=== PATIENT | male | born 1975 | race Caucasian/White ===

== ENCOUNTER 2020-11-05 14:05 | Emergency (ER) | payer OTHER, SELFPAY ==
--- NOTE | 2020-11-05 14:07 | ECG_ITS ---
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 Measurements Intervals [place] Rate: 73 P: 45 LA: 137 QRS: 42 QRSD: 93 T: 50 QT: 367 QTc: 406 Interpretive Statements SINUS RHYTHM EARLY REPOLARIZATION [ST ELEVATION WITH NORMALLY INFLECTED T-WAVE] No previous ECG available for comparison Electronically Signed On 11-05-2020 17:01:57 CDT by Laquita Garcia M.D. [id number] f
--- NOTE | 2020-11-05 14:07 | XR_ITS ---
WS: [id number] Portable AP upright chest, 11/05/2020 Clinical Data: chest pain Comparison: None. Findings: No nodules, masses or effusions are seen. The heart is normal. The pulmonary vascularity is not increased. No pneumonia or pneumothorax is seen. XR/XR chest 1V portable [id number] Impression: Negative chest.
[2020-11-05 15:45] VITALS: BP 127/85; PULSE 73; RESP 16; TEMP 36.7; O2SAT 97; BMI 27.9
--- NOTE | 2020-11-05 16:07 | ECG_ITS ---
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 Measurements Intervals [place] Rate: 75 P: 112 AL: 146 QRS: 43 QRSD: 96 T: 84 QT: 376 QTc: 421 Interpretive Statements SINUS RHYTHM MINIMAL ST DEPRESSION [0.025+ mV ST DEPRESSION] Compared to ECG 11/05/2020 15:12:51 ST (T wave) deviation now present Early repolarization no longer present Electronically Signed On 11-06-2020 9:28:00 CDT by Laquita Garcia M.D. [id number] f
--- NOTE | 2020-11-05 17:28 | ED_ITS ---
Documented by User: Arian Flores DO 11/06/20 12:41 HPI - Chest Pain General: Chief Complaint: Chest Pain Stated Complaint: Chest Pain, Light Headed, Tingling in fingers Time Seen by Provider: 11/05/20 17:26 History of Present Illness: HPI narrative: 44-year-old male presents with complaints of chest pain lightheadedness. He has no known coronary artery disease no previous evaluation. He has not noticed anything that alleviates or exacerbates it. He does notice he can get very temporary relief with change in position but it only last a few seconds then will begin to recur again. Has not previously been known to have heart disease nor is he had any evaluation he is not diabetic nor does he have a history of hypertension. Been going on for several hours today. MD complaint: chest pain and chest heaviness Onset (ago): hour(s) Timing of current episode: episodic Prior episodes: No Onset: during rest Pain location: substernal and right chest Pain radiation: right shoulder Severity: moderate Quality: aching and heaviness Relieving factors: nothing Exacerbating factors: nothing Associated symptoms: Deny abdominal pain, diaphoresis, dyspnea, fever(s), leg edema, nausea, palpitations, sense of impending doom, syncope or vomiting Treatment prior to arrival: none Review of Systems Const: Denies: fever(s) or diaphoresis ENMT: Denies: throat pain, ear or mastoid pain, nasal discharge or nasal congestion Card: Denies: palpitations or syncope Resp: Denies: dyspnea GI: Denies: abdominal pain, nausea or vomiting : Denies: flank pain, dysuria, urinary frequency or urinary urgency Skin/Breast: Denies: rash or pruritus PFSH ED PFSH: Social History Smoking and tobacco status: former smoker Alcohol intake: never Physical Exam Const: COMMON NORMALS: no acute distress GENERAL APPEARANCE: cooperative and comfortable ORIENTATION/CONSCIOUSNESS: Yes awake, Yes oriented to person, Yes oriented to place and Yes oriented to time HENMT: COMMON NORMALS: normocephalic and atraumatic HEAD & SCALP: normocephalic and atraumatic Neck/C-Spine: COMMON NORMALS: no JVD Resp: COMMON NORMALS: normal respiratory effort, No retractions, No use of accessory muscles and clear to auscultation bilaterally AUSCULTATION: clear to auscultation bilaterally Cardio: COMMON NORMALS: no JVD, regular rate, regular rhythm and No murmurs present (Cardio) RATE: regular rate RHYTHM: regular rhythm GI: COMMON NORMALS: Soft to palpation and No hepatosplenomegaly present AUSCULTATION: Yes normoactive bowel sounds PALPATION: Yes Soft to palpation, No Tenderness to palpation present (GI), No Guarding due to palpation present (GI) and Yes No hepatosplenomegaly present Extremity: COMMON NORMALS: normal to inspection, capillary refill normal, no clubbing, cyanosis or edema, no calf tenderness and no pedal edema Neuro: SENSORIUM/ORIENTATION: Yes oriented to person, Yes oriented to place and Yes oriented to time Skin: COMMON NORMALS: no rashes or lesions noted GENERAL SKIN EXAM: no rashes or lesions noted Course Vital Signs: Vital signs: Vital Signs Temperature 98.1 F 11/05/20 15:45 Pulse Rate 74 11/05/20 23:18 Respiratory Rate 19 H 11/05/20 23:18 Blood Pressure 126/82 11/05/20 23:18 Pulse Oximetry 98 11/05/20 23:18 MDM - Chest Pain MDM Narrative: Medical decision making narrative: Care turned to Dr. Lacey at change shift see his notes for final diagnosis and disposition Lab Data: Labs: Lab Results 11/05/20 11/05/20 11/05/20 Range/Units 17:56 17:56 17:56 WBC 9.9 (4.0-10.0) 10^3/ uL RBC 5.34 H (4.1-5.3) 10^6/u L Hgb 15.4 (11.7-16.6) g/dL Hct 47.2 (42.0-52.0) % MCV 88.4 (80-94) fl MCH 28.8 (28.0-34.0) pg MCHC 32.6 (30.0-36.0) g/dL RDW 13.2 (12.1-15.1) % Plt Count 244 (130-400) 10^3/c mm MPV 10.2 (7.4-10.4) fL Neut % (Auto) 76.9 % Lymph % (Auto) 13.7 % Lawrence % (Auto) 7.5 % Eos % (Auto) 1.1 % Baso % (Auto) 0.4 % Neut # (Auto) 7.58 (1.8-7.7) 10^3/u L Lymph # (Auto) 1.4 (0.8-4.8) 10^3/u L Lawrence # (Auto) 0.7 (0.2-0.9) 10^3/u L Eos # (Auto) 0.1 (0.0-0.8) 10^3/u L Baso # (Auto) 0.0 (0.0-0.1) 10^3/u L Nucleated RBC % (a uto) 0 % Nucleated RBCs # 0.0 /100WBC D-Dimer (0-0.59) ug/mIFE U Sodium 138 (136-145) mmol/L Potassium 4.4 (3.5-5.1) mmol/L Chloride 100 (98-107) mmol/L Carbon Dioxide 27 (22-29) mmol/L Anion Gap 15.4 (5-19) BUN 18 (6-20) mg/dL Creatinine 0.9 (0.7-1.2) mg/dL GFR Calculation 91.3 (90-130) mL/min Glucose 86 (65-115) mg/dL Calculated Osmolal ity 287 (285-295) mOsm/k g Calcium 8.9 (8.5-10.5) mg/dL Total Bilirubin 0.2 (0.15-1.2) mg/dL AST 16 (0-40) U/L ALT 18 (0-41) U/L Alkaline Phosphata se 81 (40-130) IU/L Troponin T Baselin e 8 (0-15) ng/L Troponin T 120 Min [place] (0-15) ng/L Delta Troponin T (0-10) ABS# Total Protein 6.9 (6.6-8.7) g/dL Albumin 4.6 (3.5-5.2) g/dL Globulin 2.3 (1.3-4.6) g/dL 11/05/20 11/05/20 Range/Units 19:56 20:29 WBC (4.0-10.0) 10^3/ uL RBC (4.1-5.3) 10^6/u L Hgb (11.7-16.6) g/dL Hct (42.0-52.0) % MCV (80-94) fl MCH (28.0-34.0) pg MCHC (30.0-36.0) g/dL RDW (12.1-15.1) % Plt Count (130-400) 10^3/c mm MPV (7.4-10.4) fL Neut % (Auto) % Lymph % (Auto) % Lawrence % (Auto) % Eos % (Auto) % Baso % (Auto) % Neut # (Auto) (1.8-7.7) 10^3/u L Lymph # (Auto) (0.8-4.8) 10^3/u L Lawrence # (Auto) (0.2-0.9) 10^3/u L Eos # (Auto) (0.0-0.8) 10^3/u L Baso # (Auto) (0.0-0.1) 10^3/u L Nucleated RBC % (a uto) % Nucleated RBCs # /100WBC D-Dimer 8.48 H (0-0.59) ug/mIFE U Sodium (136-145) mmol/L Potassium (3.5-5.1) mmol/L Chloride (98-107) mmol/L Carbon Dioxide (22-29) mmol/L Anion Gap (5-19) BUN (6-20) mg/dL Creatinine (0.7-1.2) mg/dL GFR Calculation (90-130) mL/min Glucose (65-115) mg/dL Calculated Osmolal ity (285-295) mOsm/k g Calcium (8.5-10.5) mg/dL Total Bilirubin (0.15-1.2) mg/dL AST (0-40) U/L ALT (0-41) U/L Alkaline Phosphata se (40-130) IU/L Troponin T Baselin e (0-15) ng/L Troponin T 120 Min [place] 7.68 (0-15) ng/L Delta Troponin T -0.32 L (0-10) ABS# Total Protein (6.6-8.7) g/dL Albumin (3.5-5.2) g/dL Globulin (1.3-4.6) g/dL Discharge Plan Discharge Patient Disposition: Home Clinical Impression: Chest pain Qualifiers: Chest pain type: unspecified Qualified Code(s): R07.9 - Chest pain, unspecified Condition: Stable Prescriptions: New Naprosyn 500 mg tablet 500 mg PO BID PRN (Reason: pain) Qty: 20 RF: 0 No Action sertraline [Zoloft] 100 mg tablet 100 mg PO DAILY RF: 0 meloxicam 15 mg tablet 15 mg PO DAILY RF: 0 Extra Strength Pain Reliever Tablet 1 tab PO Q6H PRN (Reason: Pain) RF: 0 Centrum Men 8 mg iron- 200 mcg-600 mcg Tablet 1 tab PO DAILY RF: 0 Discharge Orders: Discharge ED (Routine); Ordered 11/05/20 Ordered By: Jaiden Lacey Referrals: Nghia Phillips DO [Primary Care Provider] - 1-3 days Discharge Diet: Advance as tolerated Discharge Activity: Resume usual activity Patient Instructions: Chest Pain (ED) Coding Level of Care Code ED Director Business for Chg Fwd Exam Comprehensive Documented by User: Jaiden Lacey MD 11/05/20 23:02 HPI - Chest Pain General: Chief Complaint: Chest Pain Stated Complaint: Chest Pain, Light Headed, Tingling in fingers Time Seen by Provider: 11/05/20 17:26 [facility] ED PFSH: Social History Smoking and tobacco status: former smoker Alcohol intake: never Course Vital Signs: Vital signs: Vital Signs Temperature 98.1 F 11/05/20 15:45 Pulse Rate 74 11/05/20 23:18 Respiratory Rate 19 H 11/05/20 23:18 Blood Pressure 126/82 11/05/20 23:18 Pulse Oximetry 98 11/05/20 23:18 MDM - Chest Pain MDM Narrative: Medical decision making narrative: Patient presents here with chest pains atypical in nature. His troponins and CT of his chest here are both negative. He is stable for discharge is to follow-up his PCP informed he likely needs to get a stress test outpatient. He is return if worsening. He understands agrees to plan. Lab Data: Labs: Lab Results 11/05/20 11/05/20 11/05/20 Range/Units 17:56 17:56 17:56 WBC 9.9 (4.0-10.0) 10^3/ uL RBC 5.34 H (4.1-5.3) 10^6/u L Hgb 15.4 (11.7-16.6) g/dL Hct 47.2 (42.0-52.0) % MCV 88.4 (80-94) fl MCH 28.8 (28.0-34.0) pg MCHC 32.6 (30.0-36.0) g/dL RDW 13.2 (12.1-15.1) % Plt Count 244 (130-400) 10^3/c mm MPV 10.2 (7.4-10.4) fL Neut % (Auto) 76.9 % Lymph % (Auto) 13.7 % Lawrence % (Auto) 7.5 % Eos % (Auto) 1.1 % Baso % (Auto) 0.4 % Neut # (Auto) 7.58 (1.8-7.7) 10^3/u L Lymph # (Auto) 1.4 (0.8-4.8) 10^3/u L Lawrence # (Auto) 0.7 (0.2-0.9) 10^3/u L Eos # (Auto) 0.1 (0.0-0.8) 10^3/u L Baso # (Auto) 0.0 (0.0-0.1) 10^3/u L Nucleated RBC % (a uto) 0 % Nucleated RBCs # 0.0 /100WBC D-Dimer (0-0.59) ug/mIFE U Sodium 138 (136-145) mmol/L Potassium 4.4 (3.5-5.1) mmol/L Chloride 100 (98-107) mmol/L Carbon Dioxide 27 (22-29) mmol/L Anion Gap 15.4 (5-19) BUN 18 (6-20) mg/dL Creatinine 0.9 (0.7-1.2) mg/dL GFR Calculation 91.3 (90-130) mL/min Glucose 86 (65-115) mg/dL Calculated Osmolal ity 287 (285-295) mOsm/k g Calcium 8.9 (8.5-10.5) mg/dL Total Bilirubin 0.2 (0.15-1.2) mg/dL AST 16 (0-40) U/L ALT 18 (0-41) U/L Alkaline Phosphata se 81 (40-130) IU/L Troponin T Baselin e 8 (0-15) ng/L Troponin T 120 Min [place] (0-15) ng/L Delta Troponin T (0-10) ABS# Total Protein 6.9 (6.6-8.7) g/dL Albumin 4.6 (3.5-5.2) g/dL Globulin 2.3 (1.3-4.6) g/dL 11/05/20 11/05/20 Range/Units 19:56 20:29 WBC (4.0-10.0) 10^3/ uL RBC (4.1-5.3) 10^6/u L Hgb (11.7-16.6) g/dL Hct (42.0-52.0) % MCV (80-94) fl MCH (28.0-34.0) pg MCHC (30.0-36.0) g/dL RDW (12.1-15.1) % Plt Count (130-400) 10^3/c mm MPV (7.4-10.4) fL Neut % (Auto) % Lymph % (Auto) % Lawrence % (Auto) % Eos % (Auto) % Baso % (Auto) % Neut # (Auto) (1.8-7.7) 10^3/u L Lymph # (Auto) (0.8-4.8) 10^3/u L Lawrence # (Auto) (0.2-0.9) 10^3/u L Eos # (Auto) (0.0-0.8) 10^3/u L Baso # (Auto) (0.0-0.1) 10^3/u L Nucleated RBC % (a uto) % Nucleated RBCs # /100WBC D-Dimer 8.48 H (0-0.59) ug/mIFE U Sodium (136-145) mmol/L Potassium (3.5-5.1) mmol/L Chloride (98-107) mmol/L Carbon Dioxide (22-29) mmol/L Anion Gap (5-19) BUN (6-20) mg/dL Creatinine (0.7-1.2) mg/dL GFR Calculation (90-130) mL/min Glucose (65-115) mg/dL Calculated Osmolal ity (285-295) mOsm/k g Calcium (8.5-10.5) mg/dL Total Bilirubin (0.15-1.2) mg/dL AST (0-40) U/L ALT (0-41) U/L Alkaline Phosphata se (40-130) IU/L Troponin T Baselin e (0-15) ng/L Troponin T 120 Min [place] 7.68 (0-15) ng/L Delta Troponin T -0.32 L (0-10) ABS# Total Protein (6.6-8.7) g/dL Albumin (3.5-5.2) g/dL Globulin (1.3-4.6) g/dL Imaging Data^: CT Chest: Attestation: I personally reviewed and interpreted this imaging study as follows: Radiologist's impression: [address] [address] [address] Scan Report Signed Patient: Lane Jensen Unit #: [id number] : 1975 Age/Sex: 44 / M ADM Date: 11/05/20 Loc: ER Room/Bed: Attending Dr: Ordering Provider/Ordering MD: Jaiden Lacey MD Date of Service: 11/05/20 Procedure(s): CT angio chest PE protcl [id number] Accession Number(s): [id number] Report Number: [id number] PROCEDURE INFORMATION: Exam: CTA Chest With Contrast Exam date and time: 11/05/2020 9:31 PM Age: 44 years old Clinical indication: Pain and abnormal findings; Abnormal diagnostic tests; Elevated d-dimer; Sternal or substernal pain and right-sided; Patient HX: HX of pe; Additional info: Cp TECHNIQUE: Imaging protocol: Computed tomographic angiography of the chest with contrast. 3D rendering (Not supervised by radiologist): MIP and/or 3D reconstructed images were created by the technologist. Radiation optimization: All CT scans at this facility use at least one of these dose optimization techniques: automated exposure control; mA and/or kV adjustment per patient size (includes targeted exams where dose is matched to clinical indication); or iterative reconstruction. Contrast material: OMNI 350; Contrast volume: 70 ml; Contrast route: INTRAVENOUS (IV); COMPARISON: CR XR chest 1V portable [id number] 11/05/2020 2:48 PM RADIATION DOSE METRICS: Total DLP (mGy-cm): 547.26 FINDINGS: Pulmonary arteries: No pulmonary embolism. Aorta: No aortic aneurysm. Lungs: Single calcified pulmonary granuloma is present, consistent with prior granulomatous disease. Pleural spaces: Unremarkable. No pneumothorax. No pleural effusion. Heart: There is mild cardiomegaly. Lymph nodes: No thoracic adenopathy Bones/joints: Unremarkable. No acute fracture. Soft tissues: Unremarkable. CT/CT angio chest PE protcl [id number] IMPRESSION: 1. No pulmonary embolism. 2. Mild cardiomegaly. Radiation Dose CTDIVOL = (mGy): DLP = 547.26 (mGy-cm) EKG Data^: EKG 1: Attestation: I personally reviewed and interpreted this EKG as follows: EKG interpretation date: 11/05/20 EKG interpretation time: 18:02 Interpretation: nsr hr [address] or t wave abnormalities qrs 96 qtc 405 EKG 2: Attestation: I personally reviewed and interpreted this EKG as follows: EKG interpretation date: 12/03/20 EKG interpretation time: 20:08 Interpretation: nsr hr [address] or t wave abnormalities qrs 94 qtc 397 Discharge Plan Discharge Patient Disposition: Home Clinical Impression: Chest pain Qualifiers: Chest pain type: unspecified Qualified Code(s): R07.9 - Chest pain, unspecified Condition: Stable Prescriptions: New Naprosyn 500 mg tablet 500 mg PO BID PRN (Reason: pain) Qty: 20 RF: 0 No Action sertraline [Zoloft] 100 mg tablet 100 mg PO DAILY RF: 0 meloxicam 15 mg tablet 15 mg PO DAILY RF: 0 Extra Strength Pain Reliever Tablet 1 tab PO Q6H PRN (Reason: Pain) RF: 0 Centrum Men 8 mg iron- 200 mcg-600 mcg Tablet 1 tab PO DAILY RF: 0 Discharge Orders: Discharge ED (Routine); Ordered 11/05/20 Ordered By: Jaiden Lacey Referrals: Nghia Phillips DO [Primary Care Provider] - 1-3 days Discharge Diet: Advance as tolerated Discharge Activity: Resume usual activity Patient Instructions: Chest Pain (ED) Coding Level of Care Code ED Director Business for Chg Fwd Exam Comprehensive
[2020-11-05 18:32] VITALS: BP 125/81; PULSE 73; RESP 15; O2SAT 97
[2020-11-05 19:01] LABS: Troponin(5th) Baseline 8 ng/L (0-15)
[2020-11-05 19:03] LABS: Alanine Aminotransferase 18 U/L (0-41); Albumin Level 4.6 g/dL (3.5-5.2); Alkaline Phosphatase 81 IU/L (40-130); Anion Gap 15.4 (5-19); Aspartate Amino Transferase 16 U/L (0-40); Blood Urea Nitrogen 18 mg/dL (6-20); Calcium 8.9 mg/dL (8.5-10.5); Carbon Dioxide 27 mmol/L (22-29); Chloride 100 mmol/L (98-107); Creatinine Clr Calc Pharmacy 116.0824; Globulin 2.3 g/dL (1.3-4.6); Glomerular Filtration Rate 91.3 mL/min (90-130); Glucose 86 mg/dL (65-115); Osmolality Calculated 287 mOsm/kg (285-295); Potassium 4.4 mmol/L (3.5-5.1); Sodium 138 mmol/L (136-145); Total Bilirubin 0.2 mg/dL (0.15-1.2); Total Protein 6.9 g/dL (6.6-8.7)
[2020-11-05 19:24] LABS: Basophils % 0.4 %; Eosinophils # 0.1 10^3/uL (0.0-0.8); Eosinophils % 1.1 %; Hematocrit 47.2 % (42.0-52.0); Hemoglobin 15.4 g/dL (11.7-16.6); Lymphocytes # 1.4 10^3/uL (0.8-4.8); Lymphocytes % 13.7 %; Mean Corpuscular HGB Conc 32.6 g/dL (30.0-36.0); Mean Corpuscular Hemoglobin 28.8 pg (28.0-34.0); Mean Corpuscular Volume 88.4 fl (80-94); Mean Platelet Volume 10.2 fL (7.4-10.4); Monocytes # 0.7 10^3/uL (0.2-0.9); Monocytes % 7.5 %; Neutrophils # 7.58 10^3/uL (1.8-7.7); Neutrophils % 76.9 %; Nucleated Red Blood Cells % 0 %; Platelet Count 244 10^3/cmm (130-400); Red Blood Count 5.34 10^6/uL (4.1-5.3); Red Cell Distribution Width 13.2 % (12.1-15.1); White Blood Count 9.9 10^3/uL (4.0-10.0)
[2020-11-05 19:56] VITALS: RESP 20
[2020-11-05] MEDS: ondansetron 2 mg/ML SDV 2 mL 4 MG IVP (19:56)
[2020-11-05] MEDS: HYDROmorphone 1 mg/mL INJ 1 mL IVP (19:56)
--- NOTE | 2020-11-05 20:07 | ECG_ITS ---
[facility] Test Date: 2020-11-05 Pat Name: Lane Jensen Department: Room: Gender: Male Unarmed Security Guard: : 1975 Requested By: Lucretia Adkins Order Number: [id number] Corrigan MD: Laquita Garcia M.D. Measurements Intervals [place] Rate: 65 P: 54 NH: 134 QRS: 49 QRSD: 94 T: 53 QT: 385 QTc: 403 Interpretive Statements SINUS RHYTHM EARLY REPOLARIZATION [ST ELEVATION WITH NORMALLY INFLECTED T-WAVE] Compared to ECG 11/05/2020 18:02:17 Early repolarization now present ST (T wave) deviation no longer present Electronically Signed On 11-06-2020 9:09:45 CDT by Laquita Garcia M.D. [id number] f
[2020-11-05 20:51] LABS: Troponin 5 2HR 7.68 ng/L (0-15)
[2020-11-05 20:54] LABS: Troponin 5 2HR Delta -0.32 ABS# (0-10)
[2020-11-05 21:24] LABS: D Dimer 8.48 ug/mIFEU (0-0.59)
--- NOTE | 2020-11-05 21:31 | CTR_ITS ---
PROCEDURE INFORMATION: Exam: CTA Chest With Contrast Exam date and time: 11/05/2020 9:31 PM Age: 44 years old Clinical indication: Pain and abnormal findings; Abnormal diagnostic tests; Elevated d-dimer; Sternal or substernal pain and right-sided; Patient HX: HX of pe; Additional info: Cp TECHNIQUE: Imaging protocol: Computed tomographic angiography of the chest with contrast. 3D rendering (Not supervised by radiologist): MIP and/or 3D reconstructed images were created by the technologist. Radiation optimization: All CT scans at this facility use at least one of these dose optimization techniques: automated exposure control; mA and/or kV adjustment per patient size (includes targeted exams where dose is matched to clinical indication); or iterative reconstruction. Contrast material: OMNI 350; Contrast volume: 70 ml; Contrast route: INTRAVENOUS (IV); COMPARISON: CR XR chest 1V portable [id number] 11/05/2020 2:48 PM RADIATION DOSE METRICS: Total DLP (mGy-cm): 547.26 FINDINGS: Pulmonary arteries: No pulmonary embolism. Aorta: No aortic aneurysm. Lungs: Single calcified pulmonary granuloma is present, consistent with prior granulomatous disease. Pleural spaces: Unremarkable. No pneumothorax. No pleural effusion. Heart: There is mild cardiomegaly. Lymph nodes: No thoracic adenopathy Bones/joints: Unremarkable. No acute fracture. Soft tissues: Unremarkable. CT/CT angio chest PE protcl [id number] IMPRESSION: 1. No pulmonary embolism. 2. Mild cardiomegaly. Radiation Dose CTDIVOL = (mGy): DLP = 547.26 (mGy-cm)
[2020-11-05] MEDS: iohexol 350 mg/mL 100 mL Btl IV (21:56)
[2020-11-05 23:18] VITALS: BP 126/82; PULSE 74; RESP 19; O2SAT 98
== END 2020-11-05 23:18 | disposition home or self-care (01) ==
PROVIDERS: Physician Assistant; Emergency Provider Emergency Medicine; PCP Emergency Medicine Emergency Medical Services
DX: R07.9 Chest pain, unspecified (principal); Z87.891 Personal history of nicotine dependence
CPT/HCPCS: 36415; 71045; 71275; 80053; 84484; 85025; 85378; 93005; 96374; 96375; 99284; J1170; J2405; Q9967

== ENCOUNTER → 2020-11-24 13:42 | Outpatient (BNVA) | payer OTHER, SELFPAY | PROVIDERS: PCP Emergency Medicine Emergency Medical Services; Referring Provider Emergency Medicine Emergency Medical Services; Visit Provider Specialist | DX: M79.641 Pain in right hand (principal); R20.0 Anesthesia of skin; R20.2 Paresthesia of skin; Z87.891 Personal history of nicotine dependence | CPT/HCPCS: 95908 ==

== ENCOUNTER → 2021-02-04 08:37 | Outpatient (BNVA) | payer OTHER, SELFPAY | PROVIDERS: PCP Emergency Medicine Emergency Medical Services; Referring Provider Emergency Medicine Emergency Medical Services; Visit Provider Specialist | DX: R20.0 Anesthesia of skin (principal); R20.2 Paresthesia of skin | CPT/HCPCS: 95860 ==

== ENCOUNTER 2021-04-09 12:53 | Outpatient (CLI) | payer OTHER, SELFPAY ==
--- NOTE | 2021-04-09 12:58 | MR_ITS ---
WS: [id number] MRI RIGHT SHOULDER ARTHROGRAM TECHNIQUE: Sagittal T2, coronal T1, T2 and proton density imaging. Axial gradient PDE imaging. Multip lanar axial sagittal and coronal T1 fat sat imaging was obtained after intra-articular administration of gadolinium. CLINICAL INFORMATION: S46.911A - Strain of unspecified muscle, fascia and tendo... COMPARISON: None. FINDINGS: Moderate degenerative arthritis AC joint. Mild downsloping acromion. Slight subacromial spurring. Mod erate narrowing of the subacromial space with impingement on the distal supraspinatus. Mild chronic t hinning of the distal supraspinatus with mild tendinopathy distally. Normal infraspinatus. Normal ter es minor. Normal subscapularis. No high-grade rotator cuff tears. Intra-articular biceps tendon appears intact. Somewhat diminutive b iceps tendon intact within the bicipital groove. Slight medial subluxation biceps tendon proximally. Paralabral cyst along the inferior margin of the glenoid labrum measuring approximately 1.9 x 1.2 CM. This does not fill with contrast on the post gadolinium imaging. This is not contiguous with the sue nt. Normal bone marrow signal in the humerus and glenoid. Anterior superior labrum is normal. No acute appearing labral tears on the arthrogram imaging. Normal middle and inferior glenohumeral ligaments. MR/MR shoulder RT wo/w con [id number] IMPRESSION: 1. Moderate degenerative arthritis AC joint with moderate downsloping of the a cromion with subacromial spurring. Impingement on the distal supraspinatus with mild chronic thinning. Tendinopathy in the distal supraspinatus. 2. Rotator cuff is otherwise normal in appearance. No high-grade rotator cuff tears. 3. Diminutive biceps tendon within the bicipital groove appears intact. Slight medial subluxation proximally. 4. Intra-articular biceps tendon appears intact 5. Glenoid labrum is normal in appearance. No acute appearing labral tears. 6. 1.9 x 1.2 cm lobulated cyst along the inferior margin of the glenoid and in ferior labrum. This is not contiguous with the joint. No visualized labral tear s in this area.
--- NOTE | 2021-04-09 13:05 | IR_ITS ---
WS: [id number] SHOULDER ARTHROGRAM RIGHT Fluoroscopic guided right shoulder arthrogram CLINICAL INFORMATION: STRAIN OF UNSPECIFIED MUSCLE, FASCIA TENDON PROCEDURE: The procedure including risks, benefits and complications were discussed with the patient, who agreed to proceed. Using sterile technique, the patient was prepped and draped in the usual ster ile fashion. After 1% lidocaine injection using fluoroscopic guidance, a 22-gauge spinal needle was a dvanced into the glenohumeral joint. Approximately 13 ml of a solution containing 10 ml normal saline , 5 ml Omnipaque 240, 5 ml 1% lidocaine, and 0.1 ml gadolinium was administered. No immediate complic ations. FLUOROSCOPY TIME: .4 minutes. IR/IR arthrogram shoulderRT [id number] IMPRESSION: Uncomplicated fluoroscopic-guided right shoulder arthrogram. MRI to follow.
[2021-04-09] MEDS: iohexol 240 mg/mL 50 mL Btl INTRA-ARTI (14:56)
== END 2021-04-09 12:54 | disposition home or self-care (01) ==
PROVIDERS: PCP Emergency Medicine Emergency Medical Services; Visit Provider Orthopaedic Surgery
DX: S46.911A Strain of unspecified muscle, fascia and tendon at shoulder and upper arm level, right arm, initial encounter (principal); X58.XXXA Exposure to other specified factors, initial encounter; M19.011 Primary osteoarthritis, right shoulder
CPT/HCPCS: 23350; 73223; 77002; A9577

== ENCOUNTER → 2021-10-30 08:27 | Outpatient (BNVA) | payer OTHER, SELFPAY | PROVIDERS: PCP Emergency Medicine Emergency Medical Services; Visit Provider Surgery | DX: Z12.11 Encounter for screening for malignant neoplasm of colon (principal) | CPT/HCPCS: 99203 ==

== ENCOUNTER → 2021-11-25 14:01 | Outpatient (BNVA) | payer OTHER, SELFPAY | PROVIDERS: PCP Emergency Medicine Emergency Medical Services; Visit Provider Podiatrist Foot & Ankle Surgery | DX: M77.41 Metatarsalgia, right foot (principal); M77.42 Metatarsalgia, left foot; M21.41 Flat foot [pes planus] (acquired), right foot; M21.42 Flat foot [pes planus] (acquired), left foot | CPT/HCPCS: 73630; 99204 ==

== ENCOUNTER 2022-01-01 07:28 | Day surgery (SDC) | payer OTHER, SELFPAY ==
[2021-12-30 12:44] VITALS: BMI 29.4
[2022-01-01 08:24] VITALS: BP 125/80; PULSE 60; RESP 16; TEMP 36.3; O2SAT 98
[2022-01-01] MEDS: sodium chloride 0.9% 1,000 ML 30 ML IV (08:31)
--- NOTE | 2022-01-01 08:59 | ANES.PREANE2 ---
Pre-Anesthetic Assessment Height/Weight: Height 1.78 m Weight 92.986 kg Temp Pulse Resp BP Pulse Ox O2 Del Method 97.3 F L 60 16 125/80 98 01/01/22 08:24 01/01/22 08:24 01/01/22 08:24 01/01/22 08:24 01/01/22 08:24 01/01/22 08:24 Preop Diagnosis: Screening Operation Date: 01/01/22 09:00 Proposed Procedures p Colonoscopy 96267,Z12.11(Not Applicable) - Eric Bedoya, DO Was Beta Tiarra taken within 24 hours: N/A Was Clonidine taken within 24 hours: N/A Last intake: Intake Last Liquid Date 12/31/21 Last Liquid Time 23:00 Last Solid Date 12/30/21 Last Solid Time 20:00 Social Alcohol and No tobacco Exam alert, oriented x 3, clear to auscultation bilaterally and regular rate & rhythm Airway Submandibular: within normal limits Cervical ROM: within normal limits Mallampati: Class II Dentition: full History/ROS No significant history except as noted and No significant complaints Pulmonary Hx PE after 14 hour surgery CV/HEM None reported None reported Hepatic None reported GI None reported Musc/skel Lower Back Pain Neuropsych None reported Anesthetic Plan ASA status: 2 Anesthesia: MAC Risk of > 500 ml blood loss (7ml/kg in children): No Medications/Allergies Home Medications Medication Instructions Recorded Confirmed Last Taken Type meloxicam 15 mg tablet 15 mg PO DAILY 10/28/20 12/30/21 12/30/21 History sertraline 100 mg tablet (Zoloft) 100 mg PO DAILY 10/28/20 01/01/22 12/31/21 History vftklsd-rgpjccswktozs-khohtrtx 1 tab PO Q6H PRN Pain 11/05/20 12/30/21 11/05/20 History tablet multivit,Ca,min-iron 8 mg-folic 1 tab PO DAILY 11/05/20 12/30/21 12/30/21 History acid 200 mcg-lycopene 600 mcg tablet (Centrum Men) Custom Molded Orthotics with #1 ea 11/25/21 11/25/21 Unknown Rx Metatarsal pad Allergies Allergy/AdvReac Type Severity Reaction Status Date / Time No Known Allergies Allergy Verified 12/30/21 12:41 Current Medications Generic Name Dose Route Start Last Admin Trade Name Freq PRN Reason Stop Dose Admin Sodium Chloride 1,000 mls @ 30 mls/hr 01/01/22 08:00 01/01/22 08:31 Sodium Chloride 0.9% IV 01/02/22 07:59 30 mls/hr .Q24H JULIO Administration PFSH Anesthesia Medical History No pertinent past medical history Surgical History History of back surgery X2 History of carpal tunnel release History of shoulder surgery Family History Other Diabetes High cholesterol Hypertension Social History Smoking and tobacco status: former smoker Alcohol intake: never History of recent travel: No Data Anesthesia Cardiac Studies: No Data to Display
--- NOTE | 2022-01-01 09:07 | PM.HP ---
Providers/Chief Complaint Primary Care Provider: Nghia Phillips DO Chief Complaint: encounter for screening for malignant neoplasm History of Present Illness Lane Jensen is a 46 year old male here for his first screening colonoscopy Medications/Allergies Home Medications Medication Instructions Recorded Confirmed Last Taken Type meloxicam 15 mg tablet 15 mg PO DAILY 10/28/20 12/30/21 12/30/21 History sertraline 100 mg tablet (Zoloft) 100 mg PO DAILY 10/28/20 01/01/22 12/31/21 History tjkievd-qqcqezspjgfiw-spcemfws 1 tab PO Q6H PRN Pain 11/05/20 12/30/21 11/05/20 History tablet multivit,Ca,min-iron 8 mg-folic 1 tab PO DAILY 11/05/20 12/30/21 12/30/21 History acid 200 mcg-lycopene 600 mcg tablet (Centrum Men) Custom Molded Orthotics with #1 ea 11/25/21 11/25/21 Unknown Rx Metatarsal pad Allergies Allergy/AdvReac Type Severity Reaction Status Date / Time No Known Allergies Allergy Verified 12/30/21 12:41 PFSH Acute PFSH: Medical History No pertinent past medical history Surgical History History of back surgery X2 History of carpal tunnel release History of shoulder surgery Family History Other Diabetes High cholesterol Hypertension Social History Smoking and tobacco status: former smoker Alcohol intake: never History of recent travel: No Vitals/I&O/Wt Last Vital Signs Temp 97.3 F L 01/01/22 08:24 Pulse 60 01/01/22 08:24 Resp 16 01/01/22 08:24 BP 125/80 01/01/22 08:24 Pulse Ox 98 01/01/22 08:24 O2 Del Method 01/01/22 08:24 Weight last 48 hrs Weight 205 lb A&P Assessment and plan (1) Colon cancer screening: Plan Colonoscopy Attestations Medical Necessity Statement*: Home Coding Level of Care Code Acute Manager Manufacturing for g Fwd Diagnoses Colon cancer screening Z12.11
[2022-01-01 09:23] VITALS: BP 128/84; PULSE 86; RESP 16; TEMP 36.3; O2SAT 94
[2022-01-01 09:34] VITALS: BP 124/90; PULSE 89; RESP 16; O2SAT 96
--- NOTE | 2022-01-01 15:05 | ANE.PACU2 ---
Inpatient post-anesthesia follow up: Airway intact: Yes Vital signs: Temperature 97.3 F Pulse Rate 89 Respiratory Rate 16 Blood Pressure 124/90 Pulse Oximetry 96 Oxygen Delivery Me thod Room Air Oxygen Flow Rate Fraction of Inspir ed Oxygen Hydration adequate: Yes Nausea and vomiting: No Pain level: 1 Mental status: Baseline
== END 2022-01-01 10:05 | disposition home or self-care (01) ==
PROVIDERS: PCP Emergency Medicine Emergency Medical Services; Visit Provider Surgery
PROC: 0DJD8ZZ Inspection of Lower Intestinal Tract, Via Natural or Artificial Opening Endoscopic (ICD-10-PCS; CPT 45378; principal; 2022-01-01 09:00)
DX: Z12.11 Encounter for screening for malignant neoplasm of colon (principal); Z87.891 Personal history of nicotine dependence
CPT/HCPCS: 45378; J2704; J3490; J7030

== ENCOUNTER → 2024-03-22 08:39 | Outpatient (BNVA) | payer OTHER, SELFPAY | PROVIDERS: PCP Emergency Medicine Emergency Medical Services; Referring Provider Emergency Medicine Emergency Medical Services; Visit Provider Psychiatry & Neurology Neurology | DX: R20.0 Anesthesia of skin (principal); R20.2 Paresthesia of skin; G56.01 Carpal tunnel syndrome, right upper limb | CPT/HCPCS: 95911; 95912 ==

== ENCOUNTER 2024-06-07 07:53 | Outpatient (RCR) | payer OTHER, SELFPAY | END 2024-06-27 23:59 | disposition home or self-care (01) | LOC: SOT 07:53 | PROVIDERS: Visit Provider Family Medicine | DX: G56.03 Carpal tunnel syndrome, bilateral upper limbs (principal) | CPT/HCPCS: 97022; 97110; 97140; 97167; 97530 ==

== ENCOUNTER 2024-06-18 22:59 | Emergency (ER) | payer OTHER, SELFPAY ==
[2024-06-18 23:02] VITALS: BP 119/77; PULSE 63; RESP 14; TEMP 36.5; O2SAT 100
[2024-06-18 23:11] VITALS: BP 118/79; PULSE 58; O2SAT 95
[2024-06-18] MEDS: fluorescein 1 mg Strip EYE-BOTH (23:15)
--- NOTE | 2024-06-18 23:27 | ED_ITS ---
HPI - Eye Problem General: Chief complaint: Eye Problems Stated complaint: Somewthing in RT Eye Time Seen by Provider: 06/18/24 23:02 Source: patient Mode of arrival: ambulatory Limitations: no limitations History of Present Illness: Patient is a 48-year-old male who presents the emergency department for right eye irritation. He states that he think he got some his eye, has been working in his shop all day and has had this happen before where he had a piece of metal. No visual changes, reports eye irritation worse when he blinks. Mild eye redness as well. Tried to flush it out at home with saline and uzyc-uvk-grcprik eyedrops but this did not seem to help. MD chief complaint: eye pain and eye redness Onset (ago): hour(s) Onset description: sudden Duration: constant Location: right eye Eye Symptoms: redness, pain and foreign body sensation Mechanism: occurred while hammering/grinding Severity: similar to previous episodes Associated symptoms: Denies fever(s), headache(s), nausea, neck pain or vomiting Treatments Prior to Arrival: irrigated eye and OTC eye drops Related Data Home Medications ?Medication ?Instructions ?Recorded ?Confirmed meloxicam 15 mg tablet 15 mg PO DAILY 10/28/2003/01 Held on 01/01/22. Instructions: Resume on 01/03/22. sertraline 100 mg tablet (Zoloft) 100 mg PO DAILY 09/3003/22/24 prfpjpq-skmfhvtvuilab-dhbuvxkh 1 tab PO Q6H PRN Pain 0 11/05/20 03/22/24 tablet Held on 01/01/22. Instructions: Resume on 01/03/22. multivit,Ca,min-iron 8 mg-folic 1 tab PO DAILY 03/22/24 acid 200 mcg-lycopene 600 mcg tablet (Centrum Men) Previous Rx's ?Medication ?Instructions ?Recorded Custom Molded Orthotics with #1 ea 11/25/21 Metatarsal pad Allergies Allergy/AdvReac Type Severity Reaction Status Date / Time No Known Allergies Allergy Verified 06/18/24 23:05 Review of Systems General: Reports: 10 or more systems reviewed and unremarkable except in HPI and below Const: Denies: fever(s), chills or fatigue Eyes: Reports: eye discomfort and eye redness; Denies: change in vision ENMT: Denies: throat pain, ear or mastoid pain or nasal discharge Card: Denies: chest pain, palpitations, swelling of feet/ankles or lightheadedness Resp: Denies: dyspnea, productive cough or wheezing GI: Denies: abdominal pain, nausea, vomiting, diarrhea or constipation : Denies: flank pain, difficulty urinating, dysuria or urinary frequency Musc: Denies: neck pain, back pain or joint pain Skin/Breast: Denies: rash Neuro: Denies: headache(s), numbness in extremities or weakness in extremities PFSH ED PFSH: Medical History No pertinent past medical history Surgical History History of back surgery X2 History of carpal tunnel release History of shoulder surgery Family History Other Diabetes High cholesterol Hypertension Social History Smoking and tobacco/nicotine status: former use of tobacco/nicotine Alcohol intake: never Substance/Drug Use: never Physical Exam Const: COMMON NORMALS: no acute distress, average body habitus, patient oriented x3, no limitations, healthy appearing, alert and well nourished HENMT: COMMON NORMALS: normocephalic and atraumatic HEAD & SCALP: normocephalic and atraumatic Eye: COMMON NORMALS: Equal, round and reactive pupils present and EOMs intact bilaterally PERIORBITAL: periorbital findings normal EYELID: eyelids normal CONJUNCTIVA: Yes conjunctival abnormal positive right conjunctival injection (Mild) diffuse; without discharge PUPIL: Yes Equal, round and reactive pupils present OTHER: After administration of tetracaine, small black foreign object was removed from medial cornea, area of patient's report of pain. Hobson lamp with fluorescein also performed and there is no sign of a corneal abrasion. Neck/C-Spine: COMMON NORMALS: full ROM and no meningeal signs Extremity: COMMON NORMALS: normal to inspection and full ROM Neuro: COMMON NORMALS: patient oriented x3, moves all extremities, no focal motor deficits and no sensory deficits noted SENSORIUM/ORIENTATION: Yes alert MENINGEAL SIGNS: Yes no meningeal signs Skin: COMMON NORMALS: no rashes or lesions noted GENERAL SKIN EXAM: no rashes or lesions noted Procedures FB Removal Eye Location: eye (R) Topical anesthetic used: tetracaine Foreign body: metal Evidence of corneal penetration: No Technique: cotton tip swab Procedure performed under: direct visualization with magnification Patient tolerated procedure: well Course Vital Signs: Vital signs: Vital Signs Temperature 97.7 F 06/18/24 23:02 Pulse Rate 58 L 06/18/24 23:11 Respiratory Rate 14 06/18/24 23:02 Blood Pressure 118/79 06/18/24 23:11 Pulse Oximetry 95 06/18/24 23:11 MDM - Eye Problem Medical Decision Making Patient presenting with foreign body sensation of the right eye, there is conjunctival injection noted and after tetracaine administration, the eye was explored and there was removal of what appeared to be a metallic speck. Hobson lamp was used with fluorescein and did not reveal any evidence of corneal abrasion at this time. Likely removed patient's source of irritation, will have him see his regular doctor routinely and return with any new or worsening. No radiology studies performed this visit Discharge Plan Discharge Patient Disposition: Home Clinical Impression: Foreign body, eye Condition: Stable Prescriptions: No Action sertraline [Zoloft] 100 mg tablet 100 mg PO DAILY meloxicam 15 mg tablet 15 mg PO DAILY (DME) Custom Molded Orthotics Sport Profile- Carbon Fiber with Metatarsal Pad See Rx Instructions .Route .MEDSUPPLY Qty: 1 0RF Rx Instructions: As directed [facility] mvmjhyi-viydagaybbkmu-scswscug Tablet 1 tab PO Q6H PRN (Reason: Pain) Centrum Men 8 mg iron- 200 mcg-600 mcg Tablet 1 tab PO DAILY Discharge Orders: Discharge ED (Routine); Ordered 06/18/24 Ordered By: Aman Young Patient Instructions: Eye Foreign Body (ED) Activity Restrictions/Additional Instructions: Follow-up with regular doctor as needed. Return with any new or worsening. Print Language: Slovak Coding Level of Care Code ED [employer] Vice President for Luciana Canales
[2024-06-18 23:31] VITALS: BP 122/79; PULSE 64; O2SAT 97
== END 2024-06-18 23:30 | disposition home or self-care (01) ==
PROVIDERS: Emergency Provider Physician Assistant
DX: T15.91XA Foreign body on external eye, part unspecified, right eye, initial encounter (principal); X58.XXXA Exposure to other specified factors, initial encounter; Z79.82 Long term (current) use of aspirin
CPT/HCPCS: 99283

== ENCOUNTER 2024-06-28 05:00 | Outpatient (RCR) | payer OTHER, SELFPAY | END 2024-07-28 23:59 | disposition home or self-care (01) | LOC: SOT 05:00 | PROVIDERS: Visit Provider Family Medicine | DX: G56.01 Carpal tunnel syndrome, right upper limb (principal) | CPT/HCPCS: 97022; 97110 ==

== ENCOUNTER → 2024-08-15 14:33 | Outpatient (BNVA) | payer OTHER, SELFPAY | PROVIDERS: Visit Provider Specialist | DX: G56.01 Carpal tunnel syndrome, right upper limb (principal) | CPT/HCPCS: 73110; 99204 ==

== ENCOUNTER 2024-08-21 05:32 | Day surgery (SDC) | payer OTHER, SELFPAY ==
[2024-08-21] VITALS (11 sets, daily range): BP systolic 120–141; BP diastolic 67–87; PULSE 55–87; RESP 16–18; TEMP 36.3–36.6; O2SAT 94–99; BMI 28.7
[2024-08-21] MEDS: acetaminophen 1,000 MG/100 ML PIGGYBACK 400 MG IV (06:13)
[2024-08-21] MEDS: sodium chloride 0.9% 1,000 ML 30 ML IV (06:14)
--- NOTE | 2024-08-21 06:38 | ANES.PREANE2 ---
Pre-Anesthetic Assessment Height/Weight: Height 1.78 m Weight 90.718 kg Temp Pulse Resp BP Pulse Ox O2 Del Method 97.4 F L 60 17 132/77 99 Room Air 08/21/24 05:56 08/21/24 05:56 08/21/24 05:56 08/21/24 05:56 08/21/24 05:56 08/21/24 05:56 Operation Date: 08/21/24 07:00 Proposed Procedures p RIGHT Carpal Tunnel Release(Right) - Lis Heath MD Familial anesthetic complications: Slow to wake Was Beta Tiarra taken within 24 hours: N/A Was Clonidine taken within 24 hours: N/A Last intake: Intake Last Liquid Date 08/20/24 Last Liquid Time 18:30 Last Solid Date 08/20/24 Last Solid Time 18:30 Social Alcohol (1 beer daily) and No tobacco Exam alert, oriented x 3, clear to auscultation bilaterally and regular rate & rhythm Airway Mallampati: Class III Dentition: full and other (temporary crown) CV/HEM hx surgical induced PE (14 hr surgery) Anesthetic Plan ASA status: 2 Anesthesia: General Risk of > 500 ml blood loss (7ml/kg in children): No Medications/Allergies Home Medications ?Medication ?Instructions ?Recorded ?Confirmed ?Last Taken ?Type meloxicam 15 mg tablet 15 mg PO DAILY 10/28/20 08/20/24 06/27/24 History Held on 01/01/22. Instructions: Resume on 01/03/22. sertraline 100 mg tablet (Zoloft) 100 mg PO DAILY 10/28/20 08/20/24 08/20/24 History Custom Molded Orthotics with #1 ea 11/25/21 08/15/24 Unknown Rx Metatarsal pad Allergies Allergy/AdvReac Type Severity Reaction Status Date / Time No Known Allergies Allergy Verified 08/20/24 14:04 Current Medications Generic Name Dose Route Start Last Admin Trade Name Freq PRN Reason Stop Dose Admin Sodium Chloride 1,000 mls @ 30 mls/hr 08/21/24 05:45 08/21/24 06:14 Sodium Chloride 0.9% IV 08/22/24 05:44 30 mls/hr .Q24H JULIO Administration PFSH Anesthesia Medical History No pertinent past medical history Surgical History History of back surgery X2 History of carpal tunnel release History of shoulder surgery Family History Other Diabetes High cholesterol Hypertension Social History Smoking and tobacco/nicotine status: former use of tobacco/nicotine Alcohol intake: never Substance/Drug Use: never
--- NOTE | 2024-08-21 07:05 | W.PM.OPSUD ---
Surgery/Procedure H&P Update DATE OF PROCEDURE: August 21, 2024 DATE H&P PERFORMED: 08/15/24 H&P UPDATE INFORMATION: I have reviewed H&P completed within last 30 days, I have examined patient prior to procedure, No changes to prior documentation, H&P is in [facility] EMR on date indicated and Risks and benefits of the procedure reviewed PLANNED PROCEDURE: Operation Date: 08/21/24 07:00 Proposed Procedures p RIGHT Carpal Tunnel Release(Right) - Lis Heath MD Related Problem List Diagnoses (1) Right carpal tunnel syndrome:
[2024-08-21] MEDS: ceFAZolin 2,000 mg SDV 2000 MG IVP (07:11)
[2024-08-21] MEDS: BUPivacaine 0.5% INJ 30 mL XX (07:43)
--- NOTE | 2024-08-21 08:01 | P.OP_ITS ---
Operative Report Date of procedure: August 21, 2024 Pre-op diagnosis: Right carpal tunnel syndrome Post-op diagnosis: Right carpal tunnel syndrome Post-op findings: Very tight carpal canal with severe compression. Large vein along the median nerve. Procedure done: Right carpal tunnel release Implants: None Specimens removed/disposition: None Pathology: None Surgeon: Lis Heath MD Outpatient Psychiatrist: None Estimated blood loss (mL): 2 Tourniquet time (min): 18 (At 250 mmHg) IV fluids (mL): 500 Urine output (mL): 0 (No Villar) Complications: None Findings: See above Condition: stable Disposition: PACU (Then return to same-day surgery for discharge to home) Brief History: This 48-year-old gentleman presented to the office complaining of significant numbness and tingling to the right hand. He dropped things from his fingers going numb. He noted his middle finger felt prickly all the time. Nerve conduction study demonstrated carpal tunnel syndrome. After discussion, the patient wished to proceed with carpal tunnel release. Risks and complications were discussed with him both at the time of scheduling and also on the morning of surgery. Questions were answered. Procedure: The patient was brought to the operating theater. The patient had a general anesthesia per LMA, ASA 2. The tourniquet was elevated to 250 mmHg for a total tourniquet time of 18 minutes. The patient was also given Ancef 2 g preoperatively. The arm was then prepped and draped with DuraPrep in usual fashion with the arm draped free. A surgical pause was performed. At the time, the surgical pause, we confirmed the site and side of surgery. We also confirmed the patient's identity, appropriate and timely administration of preoperative antibiotics and preoperative surgical markings. An incision was then made along the thenar crease. The incision crossed the wrist joint in a curvilinear fashion. Dissection continued through skin and soft tissues using a scalpel. The palmaris longus was identified along with the transverse carpal ligament. Each of these was released carefully to avoid injury to the median nerve. We were able to dissect gently into the carpal canal which was noted to be quite tight with significant compression across the median nerve. The nerve was visualized and was an hourglass shape with a large vein running along it. The canal was subsequently palpated to assure there was no bony encroachment upon the canal. There was a quite thickened fibrous tissue within the canal, and this was opened longitudinally as well. The canal was then palpated distally and proximally to assure that my small finger was passed easily without impingement. Finding this to be so, attention was directed to closure. The wound was irrigated with ropivacaine plain. It was then closed with 3-0 nylon in an interrupted mattress fashion. Sterile dressing was then placed consisting of Dermabond, OpSite, fluffed fluffs, sterile soft roll, and an Isaac wrap. The tourniquet was released after 18 minutes. There were no complications. There were no specimens. The procedure was well tolerated. Plan is the patient will be discharged home. Related Problem List Diagnoses (1) Right carpal tunnel syndrome:
--- NOTE | 2024-08-21 09:25 | ANE.PACU2 ---
Inpatient post-anesthesia follow up: Airway intact: Yes Vital signs: Temperature 98 F Pulse Rate 60 Respiratory Rate 16 Blood Pressure 134/75 Pulse Oximetry 97 Oxygen Delivery Me thod Room Air Oxygen Flow Rate 6 Fraction of Inspir ed Oxygen Hydration adequate: Yes Nausea and vomiting: No Pain level: 1 Mental status: Baseline
== END 2024-08-21 09:25 | disposition home or self-care (01) ==
PROVIDERS: PCP Family Medicine; Visit Provider Specialist
PROC: (CPT 64721; principal; 2024-08-21 07:00)
DX: G56.01 Carpal tunnel syndrome, right upper limb (principal); Z86.711 Personal history of pulmonary embolism; Z87.891 Personal history of nicotine dependence; Z79.82 Long term (current) use of aspirin
CPT/HCPCS: 64721; J0131; J0690; J1100; J2250; J2371; J2405; J2704; J3010; J3490; J7030; J9999

== ENCOUNTER → 2024-09-03 11:01 | Outpatient (BNVA) | payer OTHER, SELFPAY | PROVIDERS: PCP Family Medicine; Visit Provider Specialist | DX: Z98.890 Other specified postprocedural states (principal) | CPT/HCPCS: 99024 ==